=== PATIENT | female | born 1940 | race American Indian/Alaskan Native ===

== ENCOUNTER 2017-08-17 07:02 | Day surgery (SDC) | payer MEDICARE ==
[2017-08-17 07:47] LABS: Hematocrit 22.7 % (30.3-42.9); Hemoglobin 7.8 gm/dl (10.1-14.3); Mean Corpuscular HGB Conc 34 % (30-34); Mean Corpuscular Hemoglobin 29 pg (28-32); Mean Corpuscular Volume 85 fl (79-97); Platelet Count 183 K/mm3 (140-440); Red Blood Count 2.66 M/mm3 (3.65-5.03); Red Cell Distribution Width 18.7 % (13.2-15.2)
[2017-08-17 07:54] VITALS: BP 116/75
[2017-08-17 07:58] LABS: White Blood Count 2.3 K/mm3 (4.5-11.0)
[2017-08-17 07:58] LABS: INR 0.95 (0.87-1.13)
[2017-08-17] MEDS ORDERED: NACL 0.9% 500 ML 500 ML IV SCH (08:00)
[2017-08-17 08:02] LABS: Potassium 4.1 mmol/L (3.6-5.0)
[2017-08-17 08:27] LABS: Blastocytes % (Manual) 0 %
[2017-08-17 08:28] LABS: Anisocytosis 1+; Polychromasia Few
[2017-08-17 08:29] LABS: Ovalocytes Few
[2017-08-17] MEDS ORDERED: ECOTRIN PO ONE (08:30)
[2017-08-17 08:31] LABS: Diff Status Complete; Platelet Estimate Consistent w Auto
[2017-08-17] MEDS ORDERED: HEPARIN 10,000 UNITS/10 ML ONE (08:50)
[2017-08-17] MEDS ORDERED: CALAN ONE (08:50)
[2017-08-17] MEDS ORDERED: HEPARIN/NS 5000 UNIT/500ML(CATH LAB) 500 ML IR ONE (08:50)
[2017-08-17] MEDS ORDERED: XYLOCAINE 2% INFILTRATI ONE (08:51)
[2017-08-17] MEDS ORDERED: NITROGLYCERIN SYRINGE 0 ML ONE (08:51)
[2017-08-17] MEDS ORDERED: VERSED ONE (08:52)
[2017-08-17] MEDS ORDERED: SUBLIMAZE ONE (08:52)
--- NOTE | 2017-08-17 09:02 | Event Note ---
Date: 08/17/17 Patient presented for outpatient cardiac catheterization: Indication-a small anteroapical defect of moderate intensity. Pre-cath labs were abnormal-most specifically severe anemia with a HCT 22. Also noted that patient had a NORMAL cardiac catheterization just 2 years ago-2014. Plan: Will cancel cath procedure today, pending further evaluation and management of anemia. After anemia corrected then patient should be rescheduled for cath if still indicated.
== END 2017-08-17 09:25 | disposition home or self-care (01) ==
LOC: CATHLABREC 07:02
PROVIDERS: ATTEND Internal Medicine Cardiovascular Disease
DX: R94.39 Abnormal result of other cardiovascular function study (principal); I12.9 Hypertensive chronic kidney disease with stage 1 through stage 4 chronic kidney disease, or unspecified chronic kidney disease; N18.2 Chronic kidney disease, stage 2 (mild); M19.90 Unspecified osteoarthritis, unspecified site; Z79.01 Long term (current) use of anticoagulants; Z72.89 Other problems related to lifestyle; Z53.8 Procedure and treatment not carried out for other reasons
CPT/HCPCS: 36415; 80048; 85007; 85025; 85610; 85730; 93005; 93010; J1644; J7040; J2250; J3010